=== PATIENT | female | born 1975 | race Hispanic/Latino ===

== ENCOUNTER 2019-10-21 11:45 | Observation (INO) | payer MEDICAID ==
[~2019-10-21] VITALS: Ht 152.4 cm; Wt 80.7 kg
[2019-10-21 12:31] LABS: BASOPHILS % (AUTO) 0.4 % (0.0-5.0); EOSINOPHILS % (AUTO) 1.1 % (0.0-8.0); HEMATOCRIT 22.9 % (36-48); LYMPHOCYTES % (AUTO) 22.3 % (21.0-51.0); MEAN CORPUSCULAR HEMOGLOBIN 16.1 pg (27.0-33.0); MEAN CORPUSCULAR HGB CONC 26.2 g/dL (32.0-36.0); MEAN CORPUSCULAR VOLUME 61.6 fL (79-99); MONOCYTES % (AUTO) 4.8 % (3.0-13.0); NEUTROPHILS % (AUTO) 70.5 % (40.0-77.0); NUCLEATED RED BLOOD CELLS 0.7 % (0.0-0.19); PLATELET COUNT (AUTO) 533 K/uL (130-400); RED BLOOD CELL COUNT(AUTO) 3.72 MIL/uL (4.00-5.50); RED CELL DISTRIBUTION WIDTH 20.2 % (11.0-15.5); WHITE BLOOD COUNT (AUTO) 10.6 K/uL (4.8-10.8)
[2019-10-21 12:40] LABS: ALBUMIN 3.5 g/dL (3.5-5.0); BILIRUBIN,TOTAL 0.8 mg/dL (0.2-1.0); CREATININE 0.7 mg/dL (0.5-1.5); POTASSIUM 3.9 mmol/L (3.5-5.1); TOTAL PROTEIN, SERUM 7.9 g/dL (6.0-8.3)
[2019-10-21 16:01] VITALS: BP 147/92
[2019-10-21] MEDS ORDERED: BACL20TA PO (16:29)
[2019-10-21] MEDS ORDERED: SERT100T12 PO (16:29)
[2019-10-21] MEDS ORDERED: DICL75TA5 PO (16:29)
[2019-10-21] MEDS ORDERED: INSLAN SQ (16:29)
[2019-10-21] MEDS ORDERED: GABA300S PO (16:29)
[2019-10-21] MEDS ORDERED: GLIM4TAB36 PO (16:29)
[2019-10-21] MEDS ORDERED: METF500S7 PO (16:29)
[2019-10-21] MEDS ORDERED: SODIUM CHLORIDE 0.9% 1000ML 1,000 ML IV SCH (16:45)
[2019-10-21] MEDS ORDERED: 1/2 NORMAL SALINE 1,000 ML IV SCH (16:45)
[2019-10-21 17:55] VITALS: BP 135/75
--- NOTE | 2019-10-21 17:57 | NUR ---
2ND UNIT of blood started infusing, witnessed by Jean Claude Ho RN Addendum: 10/21/19 at 1804 by ROLANDA ALEXANDER RN Amended: Links added.
[2019-10-21 18:02] VITALS: BP 126/64
[2019-10-21 18:12] VITALS: BP 132/72
[2019-10-21 19:27] VITALS: BP 136/81
[2019-10-21] MEDS ORDERED: INSULIN GLARGINE 100 UNITS/ML 10 ML VIAL SQ SCH (21:30)
[2019-10-21] MEDS ORDERED: GLIMEPIRIDE 2 MG TABLET PO SCH (21:30)
[2019-10-21] MEDS: SERTRALINE HCL 50 MG TABLET PO SCH (21:30)
[2019-10-21 23:24] VITALS: BP 129/68
[2019-10-22 03:26] VITALS: BP 137/72
[2019-10-22 05:16] LABS: CREATININE 0.6 mg/dL (0.5-1.5); POTASSIUM 3.7 mmol/L (3.5-5.1)
[2019-10-22 05:26] LABS: BASOPHILS % (AUTO) 0.4 % (0.0-5.0); EOSINOPHILS % (AUTO) 1.5 % (0.0-8.0); HEMATOCRIT 27.7 % (36-48); LYMPHOCYTES % (AUTO) 27.4 % (21.0-51.0); MEAN CORPUSCULAR HGB CONC 28.5 g/dL (32.0-36.0); MEAN CORPUSCULAR VOLUME 66.6 fL (79-99); MONOCYTES % (AUTO) 5.6 % (3.0-13.0); NEUTROPHILS % (AUTO) 64.5 % (40.0-77.0); NUCLEATED RED BLOOD CELLS 0.4 % (0.0-0.19); PLATELET COUNT (AUTO) 448 K/uL (130-400); RED BLOOD CELL COUNT(AUTO) 4.16 MIL/uL (4.00-5.50); RED CELL DISTRIBUTION WIDTH 22.6 % (11.0-15.5); WHITE BLOOD COUNT (AUTO) 10.4 K/uL (4.8-10.8)
[2019-10-22] MEDS ORDERED: INSULIN HUMULIN R 100 UNIT/ML 3ML SQ SCH (07:30)
[2019-10-22 07:46] VITALS: BP 146/81
[2019-10-22] MEDS: METFORMIN HCL 500 MG TABLET PO SCH ×2 (08:00→08:08)
[2019-10-22] MEDS ORDERED: IRON SUCROSE COMPLEX 200 MG in SODIUM CHLORIDE 0.9% 250 ML IV SCH (08:00)
[2019-10-22] MEDS: SERTRALINE HCL 50 MG TABLET PO SCH (08:08)
--- NOTE | 2019-10-22 09:10 | NUR ---
DR. SPRINGER INFORMED OF PT CONSULT. NEW ORDERS RECEIVED AND STATED WILL BE BY TO CHECK PT.
--- NOTE | 2019-10-22 09:15 | NUR ---
DR. SPRINGER AT BEDSIDE TO ASSESS AND TALK TO PT. ORDERS RECEIVED FOR DISCHARGE AND TO FOLLOW UP IN OFFICE.
[2019-10-22] MEDS ORDERED: MEDROXYPROGESTERONE ACET 5 MG TAB PO SCH (09:30)
[2019-10-22 11:53] VITALS: BP 144/83
--- NOTE | 2019-10-22 12:40 | NUR ---
DISCHARGE PT LEFT UNIT VIA WHEELCHAIR, ACCOMPANIED BY FAMILY. DENIED PAIN AND HAD NO COMPLAINTS AT THIS TIME. TRANSPORTED BY PERSONAL VEHICLE.
[2019-10-22] MEDS ORDERED: INSULIN GLARGINE 100 UNITS/ML 10 ML VIAL SQ SCH (21:00)
== END 2019-10-22 12:40 | disposition home or self-care (01) ==
LOC: EDH 11:45 → EDHIP 11:46 → UNDOADMOB 11:46 → EDHIP 11:47 → WSH 16:00
PROVIDERS: ADMIT Internal Medicine; ATTEND Internal Medicine
DX: D64.9 Anemia, unspecified (principal); I10 Essential (primary) hypertension; E78.5 Hyperlipidemia, unspecified; E11.9 Type 2 diabetes mellitus without complications
CPT/HCPCS: 36415 ×2; 36430; 74176; 76856; 80048; 80053; 82607; 82728; 82948 ×2; 85025 ×2; 86850; 86900; 86901; 86923 ×2; 93005; 96361 ×2; 96365; 96366; 99285; G0378 ×14; J1756; J7030; J7050; P9016 ×2

== ENCOUNTER 2021-09-17 17:43 | Emergency (ER) | payer MEDICAID ==
[~2021-09-17] VITALS: Ht 152.4 cm; Wt 80.3 kg
[~2021-09-17 17:43] MED LIST: BACL20TA PO; DICL75TA5 PO; GABA300S PO; GLIM4TAB36 PO; INSLAN SQ; METF500S7 PO; SERT-440 PO
[2021-09-17 18:10] LABS: BASOPHILS % (AUTO) 0.2 % (0.0-5.0); EOSINOPHILS % (AUTO) 0.2 % (0.0-8.0); HEMATOCRIT 35.4 % (36-48); LYMPHOCYTES % (AUTO) 6.1 % (21.0-51.0); MEAN CORPUSCULAR HEMOGLOBIN 29.3 pg (27.0-33.0); MEAN CORPUSCULAR HGB CONC 33.9 g/dL (32.0-36.0); MEAN CORPUSCULAR VOLUME 86.3 fL (79-99); MONOCYTES % (AUTO) 5.6 % (3.0-13.0); NEUTROPHILS % (AUTO) 87.4 % (40.0-77.0); PLATELET COUNT (AUTO) 293 K/uL (130-400); RED CELL DISTRIBUTION WIDTH 13.8 % (11.0-15.5); WHITE BLOOD COUNT (AUTO) 16.4 K/uL (4.8-10.8)
[2021-09-17 18:20] LABS: CREATININE 0.8 mg/dL (0.5-1.5); POTASSIUM 3.5 mmol/L (3.5-5.1)
[2021-09-17 18:27] LABS: ALBUMIN 3.6 g/dL (3.5-5.0); TOTAL PROTEIN, SERUM 7.9 g/dL (6.0-8.3)
[2021-09-17] MEDS ORDERED: 0.9%NACL 1000ML 1,000 ML IV SCH (18:30)
[2021-09-17] MEDS ORDERED: ONDANSETRON 4MG INJ IVP ONE (18:30)
[2021-09-17] MEDS ORDERED: KETOROLAC 30MG VIAL (30MG/ML) IVP ONE (18:30)
[2021-09-17 18:34] LABS: BILIRUBIN,URINE Negative (NEGATIVE); COLOR,URINE Yellow (YELLOW); GLUCOSE, URINE (UA) 250 mg/dL (NEGATIVE); KETONES,URINE Negative (NEGATIVE); LEUKOCYTE ESTERASE ,URINE Moderate (NEGATIVE); NITRATE,URINE Positive (NEGATIVE); OCCULT BLOOD,URINE Large (NEGATIVE); PH,URINE 5.5 (5.0-8.0); PROTEIN,URINE 300 mg/dL (NEGATIVE); UROBILINOGEN,URINE 0.2 mg/dL (0.2-1.0)
[2021-09-17 18:37] LABS: APPEARANCE,URINE CLOUDY (CLEAR)
[2021-09-17 18:41] LABS: HCG,QUALITATIVE URINE NEGATIVE (NEGATIVE)
[2021-09-17] MEDS ORDERED: IOHEXOL 350 MG/ML 100ML INFUS..BTL IV ONE (18:59)
[2021-09-17] MEDS ORDERED: CEFTRIAXONE 2GM VIAL IVP ONE (19:00)
[2021-09-17 19:14] LABS: BACTERIA,URINE Few /HPF (None Seen); MUCUS,URINE Rare LPF (None Seen); SQUAMOUS EPITHELIAL CELL,UR Few /HPF (0-2); WBC,URINE 26-50 /HPF (0-1)
[2021-09-17 19:37] VITALS: BP 143/75
[2021-09-17] MEDS ORDERED: ACET-2079 PO (19:41)
[2021-09-17] MEDS ORDERED: CEPH500B PO (19:41)
== END 2021-09-17 19:56 | disposition home or self-care (01) ==
LOC: EDH 17:43
DX: N10 Acute pyelonephritis (principal); B96.89 Other specified bacterial agents as the cause of diseases classified elsewhere; R11.2 Nausea with vomiting, unspecified; Z20.822 Contact with and (suspected) exposure to COVID-19; E11.9 Type 2 diabetes mellitus without complications; Z79.899 Other long term (current) drug therapy; Z88.8 Allergy status to other drugs, medicaments and biological substances
CPT/HCPCS: 99285; 74177; 96374; 96375; 87635; 96361; 80053; 85025; 87077; 87088; 87186; 87804 ×2; 81001; 81025; 36415; C9803; J7030; J0696; J2405; J1885; Q9967

== ENCOUNTER 2022-01-20 16:32 | Emergency (ER) | payer MEDICAID ==
[~2022-01-20] VITALS: Ht 152.4 cm; Wt 81.6 kg
[~2022-01-20 16:32] MED LIST changes: +ACET-2079 PO; +CEPH500B PO; -METF500S7 PO; +METF500S9 PO
[2022-01-20 16:36] VITALS: BP 185/74
[2022-01-20 16:59] LABS: HCG,QUALITATIVE URINE NEGATIVE (NEGATIVE)
[2022-01-20] MEDS ORDERED: ACETAMINOPHEN 500 MG TABLET PO ONE (17:00)
[2022-01-20 17:14] LABS: APPEARANCE,URINE CLEAR (CLEAR); BILIRUBIN,URINE NEGATIVE (NEGATIVE); COLOR,URINE LIGHT-YELLOW (YELLOW); GLUCOSE, URINE (UA) >=1000 mg/dL (NEGATIVE); KETONES,URINE NEGATIVE (NEGATIVE); LEUKOCYTE ESTERASE ,URINE 75 Leu/uL (NEGATIVE); NITRATE,URINE NEGATIVE (NEGATIVE); PROTEIN,URINE NEGATIVE (NEGATIVE); UROBILINOGEN,URINE 0.2 mg/dL (0.2-1.0)
[2022-01-20 17:18] LABS: BACTERIA,URINE FEW /HPF (None Seen); MUCUS,URINE RARE LPF (None Seen); SQUAMOUS EPITHELIAL CELL,UR RARE /HPF (0-2)
[2022-01-20 17:22] LABS: BASOPHILS % (AUTO) 0.3 % (0.0-5.0); EOSINOPHILS % (AUTO) 0.1 % (0.0-8.0); HEMATOCRIT 35.4 % (36-48); LYMPHOCYTES % (AUTO) 8.8 % (21.0-51.0); MEAN CORPUSCULAR HEMOGLOBIN 26.7 pg (27.0-33.0); MEAN CORPUSCULAR HGB CONC 33.1 g/dL (32.0-36.0); MEAN CORPUSCULAR VOLUME 80.6 fL (79-99); MONOCYTES % (AUTO) 5.3 % (3.0-13.0); NEUTROPHILS % (AUTO) 84.5 % (40.0-77.0); PLATELET COUNT (AUTO) 285 K/uL (130-400); RED BLOOD CELL COUNT(AUTO) 4.39 MIL/uL (4.00-5.50); RED CELL DISTRIBUTION WIDTH 15.2 % (11.0-15.5); WHITE BLOOD COUNT (AUTO) 10.3 K/uL (4.8-10.8)
[2022-01-20 17:42] LABS: CREATININE 0.9 mg/dL (0.5-1.5)
[2022-01-20 17:46] LABS: ALBUMIN 3.5 g/dL (3.5-5.0); TOTAL PROTEIN, SERUM 8.4 g/dL (6.0-8.3)
[2022-01-20] MEDS ORDERED: IBUPROFEN 800 MG TAB PO ONE (19:30)
[2022-01-20] MEDS ORDERED: CEFTRIAXONE 1G VIAL IM ONE (19:30)
[2022-01-20] MEDS ORDERED: IBUP-2071 PO (19:31)
[2022-01-20] MEDS ORDERED: D-ME1POW16 PO (19:31)
[2022-01-20] MEDS ORDERED: CEFU500T67 PO (19:31)
[2022-01-20] MEDS ORDERED: ACET-2247 PO (19:32)
[2022-01-20] MEDS ORDERED: CEFTRIAXONE 1G VIAL ONE (19:40)
== END 2022-01-20 19:44 | disposition home or self-care (01) ==
LOC: EDH 16:32
DX: J06.9 Acute upper respiratory infection, unspecified (principal); N39.0 Urinary tract infection, site not specified; Z20.822 Contact with and (suspected) exposure to COVID-19; E11.9 Type 2 diabetes mellitus without complications; Z91.018 Allergy to other foods; Z79.899 Other long term (current) drug therapy; Z79.84 Long term (current) use of oral hypoglycemic drugs; Z98.890 Other specified postprocedural states
CPT/HCPCS: 99283; 87635; 80053; 85025; 87040 ×2; 87077; 87088; 87186; 87804 ×2; 83605; 81001; 81025; 36415; 96372; C9803; J0696